=== PATIENT | male | born 1945 | race Two or more races ===

== ENCOUNTER 2020-11-24 08:20 | Emergency (ER) | payer OTHER ==
[~2020-11-24] VITALS: Ht 177.8 cm; Wt 83.9 kg
[2020-11-24] MEDS ORDERED: MONTELUKAST SODI4 M1 (08:40)
[2020-11-24] MEDS ORDERED: LIPITOR40 M1 (08:40)
[2020-11-24] MEDS ORDERED: ATIVAN1 M1 (08:40)
[2020-11-24] MEDS ORDERED: SERTRALINE20 MG/1 ML (08:41)
[2020-11-24] MEDS ORDERED: ELIQUIS2.5 MG (08:41)
[2020-11-24] MEDS ORDERED: LOSARTAN POTAS100 MG (08:42)
[2020-11-24] MEDS ORDERED: PROSCAR5 MG (08:43)
[2020-11-24] MEDS ORDERED: TAMS0.4C (08:43)
[2020-11-24] MEDS ORDERED: CILOSTAZOL50 MG (08:43)
[2020-11-24] MEDS ORDERED: CLINDAMYCIN HC300 MG PO (13:16)
[2020-11-24] MEDS ORDERED: INTESTINEX680 M1 PO (13:16)
== END 2020-11-24 13:35 | disposition home or self-care (01) ==
LOC: ER 08:20
DX: L02.212 Cutaneous abscess of back [any part, except buttock and flank] (principal); M54.5 Low back pain; M62.830 Muscle spasm of back; Z03.818 Encounter for observation for suspected exposure to other biological agents ruled out

== ENCOUNTER 2021-09-29 16:29 | Emergency (ER) | payer OTHER ==
[~2021-09-29] VITALS: Ht 177.8 cm; Wt 81.6 kg
[~2021-09-29 16:29] MED LIST: ATIVAN1 M1; CILOSTAZOL50 MG; CLINDAMYCIN HC300 MG PO; ELIQUIS2.5 MG; INTESTINEX680 M1 PO; LIPITOR40 M1; LOSARTAN POTAS100 MG; MONTELUKAST SODI4 M1; PROSCAR5 MG; SERTRALINE20 MG/1 ML; TAMS0.4C
== END 2021-09-29 19:25 | disposition home or self-care (01) ==
LOC: ER 16:29
DX: M79.644 Pain in right finger(s) (principal)

== ENCOUNTER 2021-11-19 13:11 | Emergency (ER) | payer OTHER ==
[~2021-11-19] VITALS: Ht 177.8 cm; Wt 83.0 kg
== END 2021-11-19 15:59 | disposition home or self-care (01) ==
LOC: ER 13:11
DX: S00.83XA Contusion of other part of head, initial encounter (principal); W18.39XA Other fall on same level, initial encounter; Y92.89 Other specified places as the place of occurrence of the external cause; I10 Essential (primary) hypertension

== ENCOUNTER → 2022-12-23 07:31 | Outpatient (CLI) | payer OTHER | END | disposition home or self-care (01) | LOC: LAB 07:31 | PROVIDERS: ATTEND Specialist | DX: D50.8 Other iron deficiency anemias (principal); R79.9 Abnormal finding of blood chemistry, unspecified; R74.02 Elevation of levels of lactic acid dehydrogenase [LDH]; K76.89 Other specified diseases of liver; D63.8 Anemia in other chronic diseases classified elsewhere; D55.0 Anemia due to glucose-6-phosphate dehydrogenase [G6PD] deficiency; D51.1 Vitamin B12 deficiency anemia due to selective vitamin B12 malabsorption with proteinuria; D51.0 Vitamin B12 deficiency anemia due to intrinsic factor deficiency; D63.1 Anemia in chronic kidney disease; E03.8 Other specified hypothyroidism; E06.3 Autoimmune thyroiditis; Z72.0 Tobacco use; Z71.6 Tobacco abuse counseling; F33.9 Major depressive disorder, recurrent, unspecified; N40.1 Benign prostatic hyperplasia with lower urinary tract symptoms; J44.9 Chronic obstructive pulmonary disease, unspecified; I11.9 Hypertensive heart disease without heart failure; G47.33 Obstructive sleep apnea (adult) (pediatric); R76.11 Nonspecific reaction to tuberculin skin test without active tuberculosis; I73.9 Peripheral vascular disease, unspecified; Z79.01 Long term (current) use of anticoagulants; R19.5 Other fecal abnormalities; Z13.220 Encounter for screening for lipoid disorders; E11.69 Type 2 diabetes mellitus with other specified complication; N39.9 Disorder of urinary system, unspecified; D64.89 Other specified anemias ==

== ENCOUNTER 2023-01-03 10:59 | Outpatient (CLI) | payer OTHER | END 2023-01-03 11:06 | disposition home or self-care (01) | LOC: LAB 10:59 | PROVIDERS: ATTEND Internal Medicine Hematology & Oncology | DX: D50.8 Other iron deficiency anemias (principal); R19.5 Other fecal abnormalities; Z72.0 Tobacco use; Z71.6 Tobacco abuse counseling; E78.2 Mixed hyperlipidemia; R73.01 Impaired fasting glucose; F33.9 Major depressive disorder, recurrent, unspecified; N40.1 Benign prostatic hyperplasia with lower urinary tract symptoms; J43.2 Centrilobular emphysema; I11.9 Hypertensive heart disease without heart failure; G47.33 Obstructive sleep apnea (adult) (pediatric); G65.0 Sequelae of Guillain-Barre syndrome; R91.1 Solitary pulmonary nodule; R76.11 Nonspecific reaction to tuberculin skin test without active tuberculosis; I73.9 Peripheral vascular disease, unspecified; Z79.01 Long term (current) use of anticoagulants ==

== ENCOUNTER 2023-02-16 09:07 | Outpatient (CLI) | payer OTHER | END 2023-02-16 09:08 | disposition home or self-care (01) | LOC: LAB 09:07 | PROVIDERS: ATTEND Internal Medicine Hematology & Oncology | DX: D50.8 Other iron deficiency anemias (principal); R19.5 Other fecal abnormalities; E11.69 Type 2 diabetes mellitus with other specified complication; E11.21 Type 2 diabetes mellitus with diabetic nephropathy; E03.8 Other specified hypothyroidism; Z12.5 Encounter for screening for malignant neoplasm of prostate; D64.89 Other specified anemias ==

== ENCOUNTER 2023-05-16 10:22 | Outpatient (CLI) | payer OTHER | END 2023-05-16 10:24 | disposition home or self-care (01) | LOC: LAB 10:22 | PROVIDERS: ATTEND Internal Medicine Hematology & Oncology | DX: D50.8 Other iron deficiency anemias (principal); R79.9 Abnormal finding of blood chemistry, unspecified; R74.02 Elevation of levels of lactic acid dehydrogenase [LDH]; K76.89 Other specified diseases of liver; D51.8 Other vitamin B12 deficiency anemias; D63.1 Anemia in chronic kidney disease; C25.9 Malignant neoplasm of pancreas, unspecified; R97.8 Other abnormal tumor markers; R97.0 Elevated carcinoembryonic antigen [CEA]; R77.2 Abnormality of alphafetoprotein; D51.3 Other dietary vitamin B12 deficiency anemia; N18.32 Chronic kidney disease, stage 3b; Z72.0 Tobacco use; Z71.6 Tobacco abuse counseling; E78.2 Mixed hyperlipidemia; R73.01 Impaired fasting glucose; F33.9 Major depressive disorder, recurrent, unspecified; N40.1 Benign prostatic hyperplasia with lower urinary tract symptoms; J44.9 Chronic obstructive pulmonary disease, unspecified; I11.9 Hypertensive heart disease without heart failure; G47.33 Obstructive sleep apnea (adult) (pediatric); G65.0 Sequelae of Guillain-Barre syndrome; R91.1 Solitary pulmonary nodule; R76.11 Nonspecific reaction to tuberculin skin test without active tuberculosis; I73.9 Peripheral vascular disease, unspecified; Z79.01 Long term (current) use of anticoagulants ==

== ENCOUNTER → 2023-06-08 | Outpatient (CLI) | payer OTHER | END | disposition home or self-care (01) | LOC: TOM 09:53 | DX: E78.2 Mixed hyperlipidemia (principal); N18.32 Chronic kidney disease, stage 3b ==

== ENCOUNTER 2023-07-05 09:24 | Outpatient (CLI) | payer OTHER ==
[2023-07-05 10:41] LABS: MEAN CELL VOLUME 93.4 fL (80.0-100.00); MEAN CORPUSCULAR HGB CONC 34.3 g/dl (32.0-36.0); PLATELET COUNT 200 K/uL (150-450); RED BLOOD COUNT 3.74 M/uL (4.00-6.00)
[2023-07-05 11:04] LABS: ALBUMIN 3.5 gm/dL (3.4-5.0); BILIRUBIN TOTAL 0.62 mg/dL (0.3-1.2); CALCIUM 9.6 mg/dL (8.5-10.1); CREATININE SERUM 1.89 mg/dL (0.70-1.30); GFR 34.49; POTASSIUM 3.7 mEq/L (3.5-5.1); PROSTATIC SPECIFIC ANTIGEN 0.315 NG/ML (0.010-4.00); TOTAL PROTEIN 7.5 gm/dL (6.4-8.2)
[2023-07-05 14:17] LABS: PLATELET ESTIMATE NORMAL (NORMAL)
== END 2023-07-05 09:25 | disposition home or self-care (01) ==
LOC: LAB 09:24
PROVIDERS: ATTEND Internal Medicine Hematology & Oncology
DX: D50.8 Other iron deficiency anemias (principal); R79.9 Abnormal finding of blood chemistry, unspecified; R74.02 Elevation of levels of lactic acid dehydrogenase [LDH]; K76.89 Other specified diseases of liver; D63.1 Anemia in chronic kidney disease; C25.9 Malignant neoplasm of pancreas, unspecified; R97.8 Other abnormal tumor markers; R97.0 Elevated carcinoembryonic antigen [CEA]; R97.20 Elevated prostate specific antigen [PSA]; R77.2 Abnormality of alphafetoprotein; D51.3 Other dietary vitamin B12 deficiency anemia; N18.32 Chronic kidney disease, stage 3b; Z72.0 Tobacco use; Z71.6 Tobacco abuse counseling; E78.2 Mixed hyperlipidemia; R73.01 Impaired fasting glucose; F33.9 Major depressive disorder, recurrent, unspecified; N40.1 Benign prostatic hyperplasia with lower urinary tract symptoms; J43.2 Centrilobular emphysema; J44.9 Chronic obstructive pulmonary disease, unspecified; I11.9 Hypertensive heart disease without heart failure; G47.33 Obstructive sleep apnea (adult) (pediatric); G65.0 Sequelae of Guillain-Barre syndrome; R91.1 Solitary pulmonary nodule; I73.9 Peripheral vascular disease, unspecified; Z79.01 Long term (current) use of anticoagulants; R76.11 Nonspecific reaction to tuberculin skin test without active tuberculosis

== ENCOUNTER → 2023-10-12 09:17 | Outpatient (CLI) | payer OTHER ==
[2023-10-12 10:39] LABS: PH,URINE 6.5 (5.0-8.0); URINE APPEARANCE Clear; URINE BILIRRUBIN Negative (NEGATIVE); URINE BLOOD Negative; URINE COLOR Yellow; URINE GLUCOSE Negative (NEGATIVE); URINE LEUKOCYTE Negative; URINE NITRATE Negative; URINE PROTEIN 30 (NEGATIVE); URINE UROBILINOGEN 0.2 E.U./dl
[2023-10-12 10:44] LABS: URINE EPITHELIAL CELLS 0.9 uL (0.0-38.8); URINE RBC 6.3 uL (0.0-20.8); URINE WBC 0.6 uL (0.0-23.2)
[2023-10-12 10:51] LABS: HEMATOCRIT 33.2 % (39.0-48.0); HEMOGLOBIN 11.5 g/dL (13-16.00); MEAN CELL VOLUME 92.6 fL (80.0-100.00); MEAN CORPUSCULAR HEMOGLOBIN 32.1 pg (27.00-32.0); MEAN CORPUSCULAR HGB CONC 34.6 g/dl (32.0-36.0); PLATELET COUNT 173 K/uL (150-450); RED BLOOD COUNT 3.59 M/uL (4.00-6.00)
[2023-10-12 11:24] LABS: ALBUMIN 3.6 gm/dL (3.4-5.0); BILIRUBIN TOTAL 0.5 mg/dL (0.3-1.2); CHOL HDL RATIO 3.7 (0-5.0); CREATININE SERUM 1.75 mg/dL (0.70-1.30); FREE TRIODOTIRONINE 2.07 pg/ml (2.18-3.98); GFR 37.69; GLOBULINA 3.9 G/DL (2.4-3.5); POTASSIUM 3.5 mEq/L (3.5-5.1); T4 FREE 0.83 NG/ML (0.76-1.46); TOTAL PROTEIN 7.5 gm/dL (6.4-8.2); TSH 1.24 uIU/mL (0.358-3.74)
[2023-10-12 11:26] LABS: C-REACTIVE PROTEIN 0.78 MG/DL (0.00-0.29)
[2023-10-12 14:36] LABS: MANUAL PLATELET COUNT 366
[2023-10-12 14:40] LABS: PLATELET ESTIMATE NORMAL (NORMAL)
[2023-10-12 15:26] LABS: FOLIC ACID > 20.00 ng/ml (4.78-20)
== END | disposition home or self-care (01) ==
LOC: LAB 09:17
PROVIDERS: ATTEND Specialist
DX: E03.8 Other specified hypothyroidism (principal); N39.9 Disorder of urinary system, unspecified; D64.89 Other specified anemias; M00.08 Staphylococcal arthritis, vertebrae; Z12.5 Encounter for screening for malignant neoplasm of prostate; Z13.220 Encounter for screening for lipoid disorders; D50.8 Other iron deficiency anemias; R79.9 Abnormal finding of blood chemistry, unspecified; R74.02 Elevation of levels of lactic acid dehydrogenase [LDH]; K76.89 Other specified diseases of liver; D51.8 Other vitamin B12 deficiency anemias; D63.1 Anemia in chronic kidney disease; C25.9 Malignant neoplasm of pancreas, unspecified; R97.8 Other abnormal tumor markers; R97.0 Elevated carcinoembryonic antigen [CEA]; R97.20 Elevated prostate specific antigen [PSA]; R77.2 Abnormality of alphafetoprotein; R73.01 Impaired fasting glucose; N40.1 Benign prostatic hyperplasia with lower urinary tract symptoms; J43.2 Centrilobular emphysema; J44.9 Chronic obstructive pulmonary disease, unspecified; I11.9 Hypertensive heart disease without heart failure; G47.33 Obstructive sleep apnea (adult) (pediatric); G65.0 Sequelae of Guillain-Barre syndrome; R91.1 Solitary pulmonary nodule; R76.11 Nonspecific reaction to tuberculin skin test without active tuberculosis; I73.9 Peripheral vascular disease, unspecified; N18.32 Chronic kidney disease, stage 3b; Z72.0 Tobacco use; E78.2 Mixed hyperlipidemia; D51.3 Other dietary vitamin B12 deficiency anemia

== ENCOUNTER 2024-01-10 12:04 | Outpatient (CLI) | payer OTHER ==
[2024-01-10 14:23] LABS: HEMATOCRIT 35.8 % (39.0-48.0); HEMOGLOBIN 12.4 g/dL (13-16.00); MEAN CELL VOLUME 95.2 fL (80.0-100.00); MEAN CORPUSCULAR HEMOGLOBIN 33.1 pg (27.00-32.0); MEAN CORPUSCULAR HGB CONC 34.8 g/dl (32.0-36.0); PLATELET COUNT 176 K/uL (150-450); RED BLOOD COUNT 3.76 M/uL (4.00-6.00); RED CELL DISTRIBUTION WIDTH 14.8 % (11.5-14.5)
[2024-01-10 14:41] LABS: PH,URINE 6.5 (5.0-8.0); URINE APPEARANCE Clear; URINE BILIRRUBIN Negative (NEGATIVE); URINE BLOOD Trace; URINE COLOR Yellow; URINE GLUCOSE Negative (NEGATIVE); URINE LEUKOCYTE Negative; URINE NITRATE Negative; URINE UROBILINOGEN 0.2 E.U./dl
[2024-01-10 14:44] LABS: URINE BACTERIA 33.9 uL (0.0-1933); URINE RBC 18.2 uL (0.0-20.8)
[2024-01-10 15:19] LABS: URINE EPITHELIAL CELLS 0.3 uL (0.0-38.8); URINE PROTEIN 100 (NEGATIVE)
[2024-01-10 15:32] LABS: ALBUMIN 3.8 gm/dL (3.4-5.0); BILIRUBIN TOTAL 0.64 mg/dL (0.3-1.2); CALCIUM 10.2 mg/dL (8.5-10.1); CHOL HDL RATIO 3.5 (0-5.0); CREATININE SERUM 1.94 mg/dL (0.70-1.30); GFR 33.46; GLOBULINA 4.1 G/DL (2.4-3.5); POTASSIUM 4.15 mEq/L (3.5-5.1); PROSTATIC SPECIFIC ANTIGEN 0.231 NG/ML (0.010-4.00); TOTAL PROTEIN 7.9 gm/dL (6.4-8.2); TSH 1.27 uIU/mL (0.358-3.74)
== END 2024-01-10 12:06 | disposition home or self-care (01) ==
LOC: LAB 12:04
PROVIDERS: ATTEND Specialist
DX: Z12.5 Encounter for screening for malignant neoplasm of prostate (principal); Z13.220 Encounter for screening for lipoid disorders; E11.65 Type 2 diabetes mellitus with hyperglycemia; N39.9 Disorder of urinary system, unspecified; N25.81 Secondary hyperparathyroidism of renal origin; D64.89 Other specified anemias; E11.69 Type 2 diabetes mellitus with other specified complication; E03.8 Other specified hypothyroidism; E11.21 Type 2 diabetes mellitus with diabetic nephropathy

== ENCOUNTER → 2024-01-11 | Outpatient (CLI) | payer OTHER | END | disposition home or self-care (01) | LOC: MRI 01-10 14:22 | DX: G30.1 Alzheimer's disease with late onset (principal); G31.84 Mild cognitive impairment of uncertain or unknown etiology | CPT/HCPCS: 70551 ==

== ENCOUNTER 2024-04-11 10:12 | Outpatient (CLI) | payer OTHER ==
[2024-04-11 10:53] LABS: URINE APPEARANCE Clear; URINE BILIRRUBIN Negative (NEGATIVE); URINE BLOOD Negative; URINE COLOR Yellow; URINE GLUCOSE Negative (NEGATIVE); URINE LEUKOCYTE Negative; URINE NITRATE Negative; URINE UROBILINOGEN 0.2 E.U./dl
[2024-04-11 10:56] LABS: HEMATOCRIT 34.1 % (39.0-48.0); HEMOGLOBIN 11.7 g/dL (13-16.00); MEAN CELL VOLUME 93.3 fL (80.0-100.00); MEAN CORPUSCULAR HEMOGLOBIN 32.1 pg (27.00-32.0); MEAN CORPUSCULAR HGB CONC 34.4 g/dl (32.0-36.0); PLATELET COUNT 179 K/uL (150-450); RED BLOOD COUNT 3.65 M/uL (4.00-6.00); RED CELL DISTRIBUTION WIDTH 14.6 % (11.5-14.5)
[2024-04-11 10:58] LABS: URINE BACTERIA 8.8 uL (0.0-1933); URINE EPITHELIAL CELLS 1.5 uL (0.0-38.8); URINE RBC 6.7 uL (0.0-20.8)
[2024-04-11 11:08] LABS: URINE PROTEIN 100 (NEGATIVE); URINE WBC 1.3 uL (0.0-23.2)
[2024-04-11 11:59] LABS: ALBUMIN 3.7 gm/dL (3.4-5.0); BILIRUBIN TOTAL 0.47 mg/dL (0.3-1.2); CALCIUM 9.9 mg/dL (8.5-10.1); CHOL HDL RATIO 3.3 (0-5.0); CREATININE SERUM 1.98 mg/dL (0.70-1.30); FREE TRIODOTIRONINE 2.04 pg/ml (2.18-3.98); GFR 32.6; GLOBULINA 3.9 G/DL (2.4-3.5); POTASSIUM 4.64 mEq/L (3.5-5.1); T4 FREE 0.84 NG/ML (0.76-1.46); TOTAL PROTEIN 7.6 gm/dL (6.4-8.2); TSH 1.12 uIU/mL (0.358-3.74)
[2024-04-11 12:02] LABS: C-REACTIVE PROTEIN 1.5 MG/DL (0.00-0.29)
== END 2024-04-11 10:20 | disposition home or self-care (01) ==
LOC: LAB 10:12
PROVIDERS: ATTEND Specialist
DX: E11.69 Type 2 diabetes mellitus with other specified complication (principal); E03.8 Other specified hypothyroidism; Z13.220 Encounter for screening for lipoid disorders; E11.21 Type 2 diabetes mellitus with diabetic nephropathy; N25.81 Secondary hyperparathyroidism of renal origin; D64.89 Other specified anemias; M00.80 Arthritis due to other bacteria, unspecified joint; N39.9 Disorder of urinary system, unspecified

== ENCOUNTER 2024-05-16 10:12 | Outpatient (CLI) | payer OTHER ==
[2024-05-16 11:03] LABS: HEMATOCRIT 31.9 % (39.0-48.0); HEMOGLOBIN 11.1 g/dL (13-16.00); MEAN CELL VOLUME 93.1 fL (80.0-100.00); MEAN CORPUSCULAR HEMOGLOBIN 32.3 pg (27.00-32.0); MEAN CORPUSCULAR HGB CONC 34.7 g/dl (32.0-36.0); PLATELET COUNT 165 K/uL (150-450); RED BLOOD COUNT 3.43 M/uL (4.00-6.00); RED CELL DISTRIBUTION WIDTH 15.2 % (11.5-14.5)
[2024-05-16 11:41] LABS: ALBUMIN 3.4 gm/dL (3.4-5.0); BILIRUBIN TOTAL 0.49 mg/dL (0.3-1.2); CALCIUM 9.7 mg/dL (8.5-10.1); CREATININE SERUM 1.82 mg/dL (0.70-1.30); GFR 35.93; GLOBULINA 3.7 G/DL (2.4-3.5); POTASSIUM 4.87 mEq/L (3.5-5.1); PROSTATIC SPECIFIC ANTIGEN 0.206 NG/ML (0.010-4.00); TOTAL PROTEIN 7.1 gm/dL (6.4-8.2)
[2024-05-16 11:55] LABS: MANUAL PLATELET COUNT 400
[2024-05-16 11:57] LABS: PLATELET ESTIMATE NORMAL (NORMAL)
[2024-05-16 12:19] LABS: FOLIC ACID > 20.00 ng/ml (4.78-20); VITAMIN D3 25 HYDROXY 37.18 ng/ml (30-120)
[2024-05-20 10:04] LABS: ALPHA FETO PROTEIN 2.2 ng/mL (0.0-6.4); ERYTHROPOIETIN 22.2 mIU/mL (2.6-18.5)
== END 2024-05-16 10:28 | disposition home or self-care (01) ==
LOC: LAB 10:12
PROVIDERS: ATTEND Internal Medicine Hematology & Oncology
DX: D50.8 Other iron deficiency anemias (principal); R97.0 Elevated carcinoembryonic antigen [CEA]; D51.3 Other dietary vitamin B12 deficiency anemia; D63.1 Anemia in chronic kidney disease; N18.32 Chronic kidney disease, stage 3b; Z72.0 Tobacco use; Z71.6 Tobacco abuse counseling; I10 Essential (primary) hypertension; E78.2 Mixed hyperlipidemia; R73.01 Impaired fasting glucose; F33.9 Major depressive disorder, recurrent, unspecified; N40.1 Benign prostatic hyperplasia with lower urinary tract symptoms; J44.9 Chronic obstructive pulmonary disease, unspecified; I11.9 Hypertensive heart disease without heart failure; G47.33 Obstructive sleep apnea (adult) (pediatric); G65.0 Sequelae of Guillain-Barre syndrome; R91.1 Solitary pulmonary nodule; R76.11 Nonspecific reaction to tuberculin skin test without active tuberculosis; I73.9 Peripheral vascular disease, unspecified; R79.9 Abnormal finding of blood chemistry, unspecified; R74.02 Elevation of levels of lactic acid dehydrogenase [LDH]; K76.89 Other specified diseases of liver; E55.9 Vitamin D deficiency, unspecified; C25.9 Malignant neoplasm of pancreas, unspecified

== ENCOUNTER 2024-07-18 11:09 | Outpatient (CLI) | payer OTHER | END 2024-07-18 11:19 | disposition home or self-care (01) | LOC: MRI 11:09 | PROVIDERS: ATTEND Internal Medicine Gastroenterology | DX: K86.2 Cyst of pancreas (principal); R74.01 Elevation of levels of liver transaminase levels | CPT/HCPCS: 74181 ==

== ENCOUNTER 2024-08-31 01:13 | Inpatient (IN) | payer OTHER ==
[~2024-08-31] VITALS: Ht 177.8 cm; Wt 79.4 kg
[2024-08-31] MEDS ORDERED: ALBUTEROL SULFATE 3 ML/2.5 MG AMPUL.NEB IH SCH (01:44)
[2024-08-31] MEDS ORDERED: 0.9 % SODIUM CHLORIDE 1,000 ML IV STA (01:48)
[2024-08-31] MEDS ORDERED: FUROsemide 20 MG/2 ML VIAL IV STA (01:49)
[2024-08-31] MEDS ORDERED: NITROGLYCERIN IN 5 % DEXTROSE 50 MG/250 ML BOTTLE IV STA (01:51)
[2024-08-31] MEDS ORDERED: MORPHINE SULFATE 2 MG/ML CARTRIDGE IV STA (01:52)
--- NOTE | 2024-08-31 02:26 | NUR ---
SE RECIBE PTE ALERTA Y ORIENTADO X 3 ESFERAS EN AMBULANCIA EN COMPANIA DE FAMILIAR.EL MISMO REFIERE FATIGA DESDE HACE VARIOS RENTERIA,SE OBSERVA USANDO MUSCULOS ACCESORIOS Y RETRACCION ABDOMINAL,EDEMA EN AMBOS PIES.PTE CON NON-REABREATHING MASK SATURANDO 91%.PARAMEDICOS ADMINISTRARON ALBUTEROL Y VASOTEC.CANALIZADO EN BRAZO LT CON .9NSS # 18 PATENTE Y LUIS F DE EDEMA.SE PRESENTA A DR HANKS Y SE UBICA EN AREA DE CPU.
--- NOTE | 2024-08-31 02:36 | NUR ---
PACIENTE EVALUADO POR DR HANKS. PAULO COLOCA ORDENES MEDICAS. SE ORIENTA PACIENTE DE LAS MISMAS. REFIERE ENTENDER. PACIENTE CON VENO PUNCION DE AMBULANCIA Y MR Fidel SWARTZ CANLIZA CON MEDIDAS ASEPTICAS EN MISMO BRAZO, AMBAS PATENTES Y LIBRES DE EDEMA Y/O ERITEMA. SE JUSTIN MUESTRAS Y SE ADMINISTRAN MEDICAMENTOS CON MEDIDAS ASEPTICAS. PACIENTE CONECTADO A MONITOR CARDIACO CON SATUROMETRO. SE INSERTA SONDA URINARIA CON MEDIDAS ESTERILES CORRESPONDIENTES, PACIENTE DRANADO 800 ML DE ORINA AMARILLA AMY AL MOMENTO. BARANDAS ELEVADAS POR HAWTHORNE SEGURIDAD CON CABECERA ELEVADA CHEKO ORDEN MEDICA. SE MONITOREA EN TURNO POR CAMBIOS SIGNIFICATIVOS.
[2024-08-31 02:53] LABS: ABG PH 7.331 (7.35-7.45); ABG PO2 82.5 mmHg (80-100); ABG pCO2 45.7 mmHg (35-45); BASE EXCESS -2.6 mmol/l; BICARBONATE 23.6 mmol/l (23-25); allen test SATISFACTORY; o2 100 %; puncture site RADIAL LEFT
[2024-08-31 03:06] LABS: URINE APPEARANCE Clear; URINE BILIRRUBIN Negative (NEGATIVE); URINE BLOOD NHT; URINE COLOR Yellow; URINE GLUCOSE Negative (NEGATIVE); URINE KETONE Negative (NEGATIVE); URINE LEUKOCYTE Negative; URINE NITRATE Negative; URINE UROBILINOGEN 0.2 E.U./dl
[2024-08-31 03:08] LABS: HEMATOCRIT 30.8 % (39.0-48.0); HEMOGLOBIN 10.5 g/dL (13-16.00); MEAN CELL VOLUME 95.5 fL (80.0-100.00); MEAN CORPUSCULAR HEMOGLOBIN 32.5 pg (27.00-32.0); PLATELET COUNT 154 K/uL (150-450); RED BLOOD COUNT 3.23 M/uL (4.00-6.00)
[2024-08-31 03:09] LABS: URINE EPITHELIAL CELLS 2.6 uL (0.0-38.8); URINE RBC 11.9 uL (0.0-20.8); URINE WBC 15.2 uL (0.0-23.2)
[2024-08-31 03:27] LABS: URINE PROTEIN 300 (NEGATIVE)
--- NOTE | 2024-08-31 03:52 | NUR ---
SE ORIENTA PACIENTE SOBRE MUESTRAS CANCELADAS Y NECESIDAD DE SER REPETIDAS. REFIERE ENTENDER. SE REALIZAN MUESTRAS CON MEDIDAS ASEPTICAS CORRESPONDIENTES.
[2024-08-31 04:51] LABS: ALBUMIN 2.9 gm/dL (3.4-5.0); BILIRUBIN TOTAL 0.64 mg/dL (0.3-1.2); CALCIUM 8.9 mg/dL (8.5-10.1); CREATININE SERUM 2.06 mg/dL (0.70-1.30); GFR 31.15; GLOBULINA 3.6 G/DL (2.4-3.5); POTASSIUM 4.64 mEq/L (3.5-5.1); TOTAL PROTEIN 6.5 gm/dL (6.4-8.2)
[2024-08-31 05:50] LABS: INR 1.09; PROTHROMBIN TIME 11.8 SECONDS (9.0-11.5)
[2024-08-31 06:04] LABS: PARTIAL THROMBOPLASTIN TIME 38.2 SECONDS (22.0-34.0)
--- NOTE | 2024-08-31 08:22 | NUR ---
SE RECIBE PACIENTE ALERTA Y ORIENTADO X3 CONECTADO A MONITOR CARDIACO Y OXIMETRIA DE PULSO CANALIZADO X2 CON ANGIO #20 Y #18 BAJANDO TRIDIL A 3 ML/HRS. SE MANTIENE BAJO OBSERVACION PARA CONTINUACION DE TRATAMIENTO.
[2024-08-31] MEDS ORDERED: SODIUM CHLORIDE 0.45 % 1,000 ML IV SCH (15:00)
[2024-08-31] MEDS ORDERED: CEFTRIAXONE SODIUM 1,000 MG in DEXTROSE 5 % IN WATER 100 ML IV SCH (15:10)
[2024-08-31] MEDS ORDERED: METOPROLOL SUCCINATE 25 MG TAB.SR.24H PO SCH (15:13)
[2024-08-31] MEDS ORDERED: LORazepam 0.5 MG TABLET PO PRN (15:15)
[2024-08-31 15:52] VITALS: O2SAT 92
[2024-08-31] MEDS ORDERED: NITROGLYCERIN IN 5 % DEXTROSE 250 ML IV SCH (15:58)
[2024-08-31 16:42] VITALS: BP 183/79
[2024-08-31] MEDS ORDERED: ATORVASTATIN CALCIUM 40 MG TABLET PO SCH (17:00)
[2024-08-31] MEDS ORDERED: IPRATROPIUM BROMIDE 0.5 MG/2.5 ML AMPUL.NEB IH SCH (17:00)
[2024-08-31] MEDS ORDERED: MONTELUKAST SODIUM 10 MG TABLET PO SCH (17:00)
[2024-08-31] MEDS ORDERED: FLUTICASONE PROPIONATE 50 MCG SPRAY NASAL SCH (17:00)
[2024-08-31] MEDS ORDERED: LOSARTAN POTASSIUM 100 MG TABLET PO SCH (17:00)
[2024-08-31] MEDS ORDERED: APIXABAN 2.5 MG TABLET PO SCH (17:00)
[2024-08-31 17:27] LABS: CKMB 2.1 NG/ML (0.5-3.6)
[2024-08-31] MEDS ORDERED: METHYLPREDNISOLONE SOD SUCC 40 MG VIAL IV SCH (19:12)
[2024-08-31] MEDS ORDERED: TAMSULOSIN HCL 0.4 MG CAP PO SCH (21:00)
[2024-08-31] MEDS ORDERED: IPRATROPIUM/ALBUTEROL SULFATE 3 ML AMPUL.NEB IH SCH (21:00)
[2024-08-31 21:31] VITALS: O2SAT 96
[2024-08-31 22:14] VITALS: BP 170/70
[2024-09-01] VITALS (8 sets, daily range): BP systolic 170–191; BP diastolic 80–110; O2SAT 93–98
[2024-09-01 07:25] LABS: HEMATOCRIT 30.6 % (39.0-48.0); HEMOGLOBIN 10.5 g/dL (13-16.00); MEAN CELL VOLUME 94.2 fL (80.0-100.00); MEAN CORPUSCULAR HEMOGLOBIN 32.4 pg (27.00-32.0); MEAN CORPUSCULAR HGB CONC 34.4 g/dl (32.0-36.0); PLATELET COUNT 154 K/uL (150-450); RED BLOOD COUNT 3.25 M/uL (4.00-6.00); RED CELL DISTRIBUTION WIDTH 14.6 % (11.5-14.5)
[2024-09-01 07:32] LABS: CKMB 1.3 NG/ML (0.5-3.6)
[2024-09-01 07:34] LABS: BILIRUBIN TOTAL 0.56 mg/dL (0.3-1.2); CALCIUM 8.9 mg/dL (8.5-10.1); CHOL HDL RATIO 3.3 (0-5.0); CREATININE SERUM 1.56 mg/dL (0.70-1.30); GFR 42.93; GLOBULINA 3.3 G/DL (2.4-3.5); POTASSIUM 3.75 mEq/L (3.5-5.1); PROSTATIC SPECIFIC ANTIGEN 0.215 NG/ML (0.010-4.00); T4 FREE 0.88 NG/ML (0.76-1.46); TOTAL PROTEIN 6.3 gm/dL (6.4-8.2); TSH 0.688 uIU/mL (0.358-3.74)
[2024-09-01 07:35] LABS: INR 1.07; PROTHROMBIN TIME 11.6 SECONDS (9.0-11.5)
[2024-09-01 07:44] LABS: URINE APPEARANCE Clear; URINE BILIRRUBIN Negative (NEGATIVE); URINE BLOOD Moderate; URINE COLOR Yellow; URINE GLUCOSE Negative (NEGATIVE); URINE KETONE Negative (NEGATIVE); URINE LEUKOCYTE Trace; URINE NITRATE Negative; URINE UROBILINOGEN 0.2 E.U./dl
[2024-09-01 07:45] LABS: C-REACTIVE PROTEIN 4.36 MG/DL (0.00-0.29)
[2024-09-01 07:47] LABS: ERYTHROCYTE SEDIMENTATION RATE 60 mm/hr; PARTIAL THROMBOPLASTIN TIME 40.7 SECONDS (22.0-34.0)
[2024-09-01 07:49] LABS: URINE BACTERIA 23.9 uL (0.0-1933); URINE RBC 264.6 uL (0.0-20.8); URINE WBC 24.7 uL (0.0-23.2)
[2024-09-01 08:17] LABS: URINE CAST 0.15 uL (0.0-1.40); URINE EPITHELIAL CELLS 0.9 uL (0.0-38.8); URINE PROTEIN 100 (NEGATIVE)
[2024-09-01] MEDS ORDERED: FUROsemide 20 MG/2 ML VIAL IV SCH (09:00)
[2024-09-01] MEDS ORDERED: hydrALAZINE HCL 50 MG TABLET PO SCH (13:51)
[2024-09-01] MEDS ORDERED: NIFEDIPINE 30 MG TAB.SA.OSM PO SCH (18:03)
[2024-09-02] VITALS (8 sets, daily range): BP systolic 126–139; BP diastolic 71–83; O2SAT 90–97
[2024-09-02 11:14] LABS: URINE PROT QUANT 24HR 210.5 MG/DL
[2024-09-02 11:28] LABS: URINE PROT QUANT 24 HR 4157.38 MG/24HR (42-225)
[2024-09-02 17:14] LABS: ABG PH 7.419 (7.35-7.45); ABG PO2 63.3 mmHg (80-100); ABG pCO2 39.2 mmHg (35-45); BASE EXCESS 0.4 mmol/l; BICARBONATE 24.8 mmol/l (23-25); SaO2 92.3 %
[2024-09-02 17:18] LABS: allen test SATISFACTORY; puncture site RADIAL RIGHT
[2024-09-02 17:19] LABS: o2 36 %
[2024-09-02] MEDS ORDERED: RISPERIDONE 0.5 MG TABLET PO SCH (21:00)
[2024-09-03] VITALS (9 sets, daily range): BP systolic 128–175; BP diastolic 67–91; O2SAT 90–99
[2024-09-03] MEDS ORDERED: SERTRALINE HCL 100 MG TABLET PO SCH (09:00)
[2024-09-03] MEDS ORDERED: CILOSTAZOL 50 MG TABLET PO SCH (09:00)
[2024-09-03] MEDS ORDERED: DONEPEZIL HCL 10 MG TABLET PO SCH (17:00)
[2024-09-03] MEDS ORDERED: NIFEDIPINE 30 MG TAB.SA.OSM PO SCH (17:00)
[2024-09-03 22:01] LABS: ALBUMIN 3.2 gm/dL (3.4-5.0); BILIRUBIN TOTAL 0.42 mg/dL (0.3-1.2); CALCIUM 9.5 mg/dL (8.5-10.1); CREATININE SERUM 2.15 mg/dL (0.70-1.30); GFR 29.65; GLOBULINA 3.6 G/DL (2.4-3.5); POTASSIUM 4.7 mEq/L (3.5-5.1); TOTAL PROTEIN 6.8 gm/dL (6.4-8.2)
[2024-09-04] VITALS (7 sets, daily range): BP systolic 145–161; BP diastolic 72–82; O2SAT 90–96
[2024-09-04 16:43] LABS: ALBUMIN 3.1 gm/dL (3.4-5.0); BILIRUBIN TOTAL 0.37 mg/dL (0.3-1.2); CALCIUM 9.5 mg/dL (8.5-10.1); CREATININE SERUM 2.14 mg/dL (0.70-1.30); GFR 29.81; GLOBULINA 3.8 G/DL (2.4-3.5); POTASSIUM 4.79 mEq/L (3.5-5.1); TOTAL PROTEIN 6.9 gm/dL (6.4-8.2)
[2024-09-04] MEDS ORDERED: ISOSORBIDE DINITRATE 5 MG TABLET PO SCH (18:19)
[2024-09-05 00:54] VITALS: O2SAT 96
[2024-09-05] MEDS ORDERED: METHYLPREDNISOLONE SOD SUCC 40 MG VIAL IV SCH (01:00)
[2024-09-05 01:10] VITALS: BP 154/77; O2SAT 99
[2024-09-05 03:48] VITALS: O2SAT 94
[2024-09-05 06:29] LABS: HEMATOCRIT 30.9 % (39.0-48.0); HEMOGLOBIN 10.9 g/dL (13-16.00); MEAN CELL VOLUME 93.3 fL (80.0-100.00); MEAN CORPUSCULAR HEMOGLOBIN 32.9 pg (27.00-32.0); MEAN CORPUSCULAR HGB CONC 35.3 g/dl (32.0-36.0); PLATELET COUNT 166 K/uL (150-450); RED BLOOD COUNT 3.31 M/uL (4.00-6.00); RED CELL DISTRIBUTION WIDTH 14.9 % (11.5-14.5)
[2024-09-05 07:16] LABS: ALBUMIN 2.9 gm/dL (3.4-5.0); BILIRUBIN TOTAL 0.34 mg/dL (0.3-1.2); CALCIUM 8.9 mg/dL (8.5-10.1); CREATININE SERUM 1.89 mg/dL (0.70-1.30); GFR 34.4; GLOBULINA 3.2 G/DL (2.4-3.5); POTASSIUM 3.46 mEq/L (3.5-5.1); TOTAL PROTEIN 6.1 gm/dL (6.4-8.2)
[2024-09-05 09:56] VITALS: BP 152/72; O2SAT 97
== END 2024-09-05 19:57 | disposition home or self-care (01) | DRG 292 ==
LOC: ER 01:13 → MEDI 15:22
PROVIDERS: Internal Medicine; ADMIT Specialist; ATTEND Specialist
PROC: BW24ZZZ Computerized Tomography (CT Scan) of Chest and Abdomen (ICD-10-PCS; principal; 2024-08-31)
PROC: BT4JZZZ Ultrasonography of Kidneys and Bladder (ICD-10-PCS; 2024-08-31)
PROC: B24BZZZ Ultrasonography of Heart with Aorta (ICD-10-PCS; 2024-08-31)
PROC: B54DZZZ Ultrasonography of Bilateral Lower Extremity Veins (ICD-10-PCS; 2024-08-31)
PROC: 4A12X4Z Monitoring of Cardiac Electrical Activity, External Approach (ICD-10-PCS; 2024-08-31)
DX: I13.0 Hypertensive heart and chronic kidney disease with heart failure and stage 1 through stage 4 chronic kidney disease, or unspecified chronic kidney disease (principal); G61.0 Guillain-Barre syndrome; J44.1 Chronic obstructive pulmonary disease with (acute) exacerbation; N17.9 Acute kidney failure, unspecified; N18.4 Chronic kidney disease, stage 4 (severe); I50.9 Heart failure, unspecified; I34.0 Nonrheumatic mitral (valve) insufficiency; J43.2 Centrilobular emphysema; I35.1 Nonrheumatic aortic (valve) insufficiency; I07.1 Rheumatic tricuspid insufficiency; J44.9 Chronic obstructive pulmonary disease, unspecified; E86.0 Dehydration; E78.5 Hyperlipidemia, unspecified; G47.33 Obstructive sleep apnea (adult) (pediatric); F03.90 Unspecified dementia, unspecified severity, without behavioral disturbance, psychotic disturbance, mood disturbance, and anxiety; I73.9 Peripheral vascular disease, unspecified

== ENCOUNTER 2024-09-09 10:04 | Outpatient (CLI) | payer OTHER ==
[2024-09-09 10:41] LABS: HEMATOCRIT 29.6 % (39.0-48.0); HEMOGLOBIN 10.1 g/dL (13-16.00); MEAN CELL VOLUME 95.6 fL (80.0-100.00); MEAN CORPUSCULAR HEMOGLOBIN 32.6 pg (27.00-32.0); RED BLOOD COUNT 3.09 M/uL (4.00-6.00); RED CELL DISTRIBUTION WIDTH 15.1 % (11.5-14.5)
[2024-09-09 10:50] LABS: PLATELET COUNT 149 K/uL (150-450)
[2024-09-09 11:01] LABS: CREATININE URINE RANDOM 94.7 MG/DL (30-125)
[2024-09-09 11:06] LABS: INR 1.05; PARTIAL THROMBOPLASTIN TIME 35.6 SECONDS (22.0-34.0); PROTHROMBIN TIME 11.4 SECONDS (9.0-11.5)
[2024-09-09 11:37] LABS: ALBUMIN 3.1 gm/dL (3.4-5.0); BILIRUBIN TOTAL 0.58 mg/dL (0.3-1.2); CHOL HDL RATIO 2.5 (0-5.0); CREATININE SERUM 1.9 mg/dL (0.70-1.30); FREE TRIODOTIRONINE 1.59 pg/ml (2.18-3.98); GFR 34.19; POTASSIUM 4.06 mEq/L (3.5-5.1); T4 FREE 0.79 NG/ML (0.76-1.46); TOTAL PROTEIN 6.1 gm/dL (6.4-8.2); TSH 0.841 uIU/mL (0.358-3.74)
[2024-09-10 09:05] LABS: PLATELET ESTIMATE NORMAL (NORMAL)
== END 2024-09-09 10:15 | disposition home or self-care (01) ==
LOC: LAB 10:04
PROVIDERS: ATTEND Specialist
DX: D64.9 Anemia, unspecified (principal); E11.65 Type 2 diabetes mellitus with hyperglycemia; I11.0 Hypertensive heart disease with heart failure; I50.9 Heart failure, unspecified; E03.9 Hypothyroidism, unspecified; E11.21 Type 2 diabetes mellitus with diabetic nephropathy; E78.2 Mixed hyperlipidemia; D68.8 Other specified coagulation defects

== ENCOUNTER 2024-09-13 06:48 | Emergency (ER) | payer OTHER ==
[~2024-09-13] VITALS: Ht 167.6 cm; Wt 86.2 kg
[2024-09-13] MEDS ORDERED: LOSARTAN POTAS100 MG PO (07:24)
[2024-09-13] MEDS ORDERED: BUDESONIDE 0.5 MG/2 ML AMPUL.NEB IH STA (08:17)
[2024-09-13] MEDS ORDERED: LEVALBUTEROL HCL 1.25 MG/3 ML SOLUTION IH STA (08:17)
[2024-09-13] MEDS ORDERED: METHYLPREDNISOLONE SOD SUCC 125 MG VIAL IV STA (08:18)
[2024-09-13] MEDS ORDERED: HYDROCODONE/CHLORPHEN P-STIREX 5 ML ML PO STA (08:19)
[2024-09-13] MEDS ORDERED: MAGNESIUM SULFATE IN WATER 50 ML IV ONE (08:30)
[2024-09-13 09:23] LABS: HEMATOCRIT 35.7 % (39.0-48.0); MEAN CELL VOLUME 95.4 fL (80.0-100.00); MEAN CORPUSCULAR HEMOGLOBIN 32.1 pg (27.00-32.0); MEAN CORPUSCULAR HGB CONC 33.6 g/dl (32.0-36.0); PLATELET COUNT 169 K/uL (150-450); RED BLOOD COUNT 3.74 M/uL (4.00-6.00); RED CELL DISTRIBUTION WIDTH 15.1 % (11.5-14.5)
[2024-09-13] MEDS ORDERED: CLONIDINE HCL 0.1 MG TABLET PO STA (10:01)
[2024-09-13 10:37] LABS: ALBUMIN 3.4 gm/dL (3.4-5.0); BILIRUBIN TOTAL 0.87 mg/dL (0.3-1.2); BILIRUBIN,CONJUGATED 0.22 mg/dL (0.0-0.2); BILIRUBIN,UNCONJUGATED 0.65 mg/dL (0.0-0.6); CALCIUM 9.4 mg/dL (8.5-10.1); CREATININE SERUM 1.87 mg/dL (0.70-1.30); GFR 34.83; POTASSIUM 4.33 mEq/L (3.5-5.1); TOTAL PROTEIN 6.8 gm/dL (6.4-8.2)
[2024-09-13 11:28] LABS: PH,URINE 6.5 (5.0-8.0); URINE APPEARANCE Clear; URINE BILIRRUBIN Negative (NEGATIVE); URINE BLOOD Small; URINE COLOR Dark Yellow; URINE GLUCOSE Negative (NEGATIVE); URINE KETONE Negative (NEGATIVE); URINE LEUKOCYTE Negative; URINE NITRATE Positive
[2024-09-13 11:32] LABS: URINE BACTERIA 12.2 uL (0.0-1933)
[2024-09-13 11:53] LABS: URINE CAST 0.44 uL (0.0-1.40); URINE PROTEIN 300 (NEGATIVE); URINE WBC 1.2 uL (0.0-23.2)
== END 2024-09-13 12:54 | disposition home or self-care (01) ==
LOC: ER 06:48
PROVIDERS: General Practice
DX: J44.1 Chronic obstructive pulmonary disease with (acute) exacerbation (principal); R06.02 Shortness of breath; I10 Essential (primary) hypertension
CPT/HCPCS: 36415; 71046; 93005; 94640; 96365; 96366; 99283; J2270; J3490

== ENCOUNTER 2024-09-16 05:46 | Inpatient (IN) | payer OTHER ==
[~2024-09-16] VITALS: Ht 165.1 cm; Wt 81.6 kg
[~2024-09-16 05:46] MED LIST changes: +LOSARTAN POTAS100 MG PO
[2024-09-16] MEDS ORDERED: 0.9 % SODIUM CHLORIDE 1,000 ML IV ONE (07:15)
[2024-09-16 08:24] LABS: HEMATOCRIT 30.6 % (39.0-48.0); HEMOGLOBIN 10.3 g/dL (13-16.00); MEAN CORPUSCULAR HEMOGLOBIN 31.9 pg (27.00-32.0); MEAN CORPUSCULAR HGB CONC 33.6 g/dl (32.0-36.0); PLATELET COUNT 165 K/uL (150-450); RED BLOOD COUNT 3.22 M/uL (4.00-6.00); RED CELL DISTRIBUTION WIDTH 15.3 % (11.5-14.5)
[2024-09-16 08:38] LABS: INR 1.05; PARTIAL THROMBOPLASTIN TIME 30.4 SECONDS (22.0-34.0); PROTHROMBIN TIME 11.4 SECONDS (9.0-11.5)
[2024-09-16 08:48] LABS: ALBUMIN 3.1 gm/dL (3.4-5.0); BILIRUBIN TOTAL 0.53 mg/dL (0.3-1.2); CALCIUM 9.6 mg/dL (8.5-10.1); CREATININE SERUM 1.9 mg/dL (0.70-1.30); GFR 34.19; GLOBULINA 3.4 G/DL (2.4-3.5); POTASSIUM 3.83 mEq/L (3.5-5.1); TOTAL PROTEIN 6.5 gm/dL (6.4-8.2)
[2024-09-16 12:08] LABS: URINE APPEARANCE Clear; URINE BILIRRUBIN Negative (NEGATIVE); URINE BLOOD Negative; URINE COLOR Yellow; URINE GLUCOSE Negative (NEGATIVE); URINE KETONE Negative (NEGATIVE); URINE LEUKOCYTE Negative; URINE NITRATE Negative; URINE UROBILINOGEN 0.2 E.U./dl
[2024-09-16 12:13] LABS: URINE BACTERIA 7.3 uL (0.0-1933); URINE RBC 6.9 uL (0.0-20.8)
[2024-09-16 12:18] LABS: URINE EPITHELIAL CELLS 0.9 uL (0.0-38.8); URINE PROTEIN 300 (NEGATIVE); URINE WBC 0.9 uL (0.0-23.2)
[2024-09-16] MEDS ORDERED: LEVALBUTEROL HCL 0.63 MG/3 ML SOLUTION IH SCH (13:14)
[2024-09-16] MEDS ORDERED: SODIUM CHLORIDE 0.45 % 1,000 ML IV SCH (13:15)
[2024-09-16] MEDS ORDERED: PANTOPRAZOLE SODIUM 40 MG/VIAL VIAL IV SCH (13:30)
[2024-09-16] MEDS ORDERED: PANTOPRAZOLE SODIUM 80 MG in 0.9 % SODIUM CHLORIDE 100 ML IV SCH (14:00)
[2024-09-16 15:48] VITALS: BP 178/76; BP 194/72; O2SAT 97
[2024-09-16] MEDS ORDERED: DONEPEZIL HCL 10 MG TABLET PO SCH (17:00)
[2024-09-16 17:55] VITALS: BP 172/81; O2SAT 97
[2024-09-16 20:17] LABS: ob POSITIVE (NEGATIVE)
[2024-09-17] VITALS (10 sets, daily range): BP systolic 117–156; BP diastolic 57–75; O2SAT 94–100
[2024-09-17 06:20] LABS: INR 1.1; PARTIAL THROMBOPLASTIN TIME 28.7 SECONDS (22.0-34.0); PROTHROMBIN TIME 11.9 SECONDS (9.0-11.5)
[2024-09-17 06:47] LABS: ALBUMIN 2.1 gm/dL (3.4-5.0); ALKALINE PHOSPHATASE 63 U/L (50-136); ALT/SGPT 15 U/L (12-78); ANION GAP 8 (10.0-20.0); AST/SGOT 16 U/L (15-37); BILIRUBIN TOTAL 0.41 mg/dL (0.3-1.2); BILIRUBIN,CONJUGATED < 0.10 mg/dL (0.0-0.2); BILIRUBIN,UNCONJUGATED 0.31 mg/dL (0.0-0.6); BLOOD UREA NITROGEN 38 mg/dL (7-18); BUN CREA RATIO 22 (7.0-25.0); CARBON DIOXIDE 27 mEq/L (21-32); CHLORIDE 113 mmol/L (98-107); CHOL HDL RATIO 3.1 (0-5.0); CHOLESTEROL 107 mg/dL (0-200); CREATININE SERUM 1.74 mg/dL (0.70-1.30); GFR 37.85; GLOBULINA 2.1 G/DL (2.4-3.5); GLUCOSE FASTING 91 mg/dL (65-100); HDL 34 mg/dl (40-60); LDL 45 mg/dl (0-130); OSMOLALITY SERUM 294 MOSM/KG (275-295); POTASSIUM 4.66 mEq/L (3.5-5.1); PROSTATIC SPECIFIC ANTIGEN 0.282 NG/ML (0.010-4.00); SODIUM 143 mmol/L (136-145); TOTAL PROTEIN 4.2 gm/dL (6.4-8.2); TRIGLYCERIDES 142 mg/dL (0-150); VLDL 28 (0-39)
[2024-09-17 06:57] LABS: URINE APPEARANCE Clear; URINE BILIRRUBIN Negative (NEGATIVE); URINE BLOOD Large; URINE COLOR Dark Yellow; URINE GLUCOSE Negative (NEGATIVE); URINE KETONE Trace (NEGATIVE); URINE LEUKOCYTE Trace; URINE NITRATE Negative; URINE UROBILINOGEN 0.2 E.U./dl
[2024-09-17 06:58] LABS: URINE BACTERIA 88.1 uL (0.0-1933); URINE CAST 1.62 uL (0.0-1.40); URINE EPITHELIAL CELLS 6.6 uL (0.0-38.8); URINE RBC 1694.6 uL (0.0-20.8); URINE WBC 21.5 uL (0.0-23.2)
[2024-09-17 07:17] LABS: URINE PROTEIN 300 (NEGATIVE)
[2024-09-17 07:57] LABS: MEAN CELL VOLUME 95.5 fL (80.0-100.00); MEAN CORPUSCULAR HGB CONC 33.9 g/dl (32.0-36.0); PLATELET COUNT 162 K/uL (150-450); RED BLOOD COUNT 2.04 M/uL (4.00-6.00); RED CELL DISTRIBUTION WIDTH 15.1 % (11.5-14.5)
[2024-09-17 07:58] LABS: HEMATOCRIT 19.5 % (39.0-48.0); HEMOGLOBIN 6.6 g/dL (13-16.00); MEAN CORPUSCULAR HEMOGLOBIN 32.3 pg (27.00-32.0)
[2024-09-17 08:00] LABS: ERYTHROCYTE SEDIMENTATION RATE 14 mm/hr
[2024-09-17] MEDS ORDERED: MONTELUKAST SODIUM 10 MG TABLET PO SCH (09:00)
[2024-09-17] MEDS ORDERED: TAMSULOSIN HCL 0.4 MG CAP PO SCH (09:00)
[2024-09-17] MEDS ORDERED: SERTRALINE HCL 100 MG TABLET PO SCH (09:00)
[2024-09-17] MEDS ORDERED: FUROsemide 20 MG/2 ML VIAL IV SCH (09:00)
[2024-09-17] MEDS ORDERED: FOLIC ACID 1 MG TABLET PO SCH (09:00)
[2024-09-18] VITALS (9 sets, daily range): BP systolic 129–152; BP diastolic 69–73; O2SAT 90–100
[2024-09-18] MEDS ORDERED: AMINO ACIDS 4.25 %/DEXTROSE 5% 1,000 ML PERIFERAL SCH (17:00)
[2024-09-19] VITALS (9 sets, daily range): BP systolic 152–175; BP diastolic 68–79; O2SAT 93–100
[2024-09-19 20:34] LABS: HEMATOCRIT 26.8 % (39.0-48.0); MEAN CELL VOLUME 88.1 fL (80.0-100.00); MEAN CORPUSCULAR HGB CONC 35.2 g/dl (32.0-36.0); RED BLOOD COUNT 3.05 M/uL (4.00-6.00)
[2024-09-19 20:41] LABS: MEAN CORPUSCULAR HEMOGLOBIN 30.8 pg (27.00-32.0)
[2024-09-19 20:46] LABS: HEMOGLOBIN 9.4 g/dL (13-16.00); PLATELET COUNT 126 K/uL (150-450)
[2024-09-19 21:49] LABS: CALCIUM 8.5 mg/dL (8.5-10.1); CHOL HDL RATIO 3.7 (0-5.0); CREATININE SERUM 1.83 mg/dL (0.70-1.30); GFR 35.71; MAGNESIUM 2.2 mg/dL (1.8-2.4); PHOSPHOROUS 2.3 mg/dL (2.5-4.9); POTASSIUM 3.16 mEq/L (3.5-5.1)
[2024-09-20] VITALS (9 sets, daily range): BP systolic 140–180; BP diastolic 63–80; O2SAT 90–100
[2024-09-20] MEDS ORDERED: POTASSIUM CHLORIDE IN WATER 100 ML IV STA (13:27)
[2024-09-20] MEDS ORDERED: LOSARTAN POTASSIUM 50 MG TABLET PO SCH (13:30)
[2024-09-20] MEDS ORDERED: hydrALAZINE HCL 20 MG VIAL IV PRN (13:30)
[2024-09-20] MEDS ORDERED: AMLODIPINE BESYLATE 10 MG TABLET PO SCH (13:30)
[2024-09-21] VITALS (9 sets, daily range): BP systolic 134–161; BP diastolic 63–81; O2SAT 90–100
[2024-09-21 08:18] LABS: CALCIUM 8.4 mg/dL (8.5-10.1); CREATININE SERUM 1.85 mg/dL (0.70-1.30); GFR 35.26; POTASSIUM 3.81 mEq/L (3.5-5.1)
[2024-09-21 09:28] LABS: HEMATOCRIT 23.8 % (39.0-48.0); HEMOGLOBIN 8.1 g/dL (13-16.00); MEAN CORPUSCULAR HEMOGLOBIN 30.6 pg (27.00-32.0); PLATELET COUNT 109 K/uL (150-450); RED BLOOD COUNT 2.64 M/uL (4.00-6.00); RED CELL DISTRIBUTION WIDTH 17.5 % (11.5-14.5)
[2024-09-21] MEDS ORDERED: FUROsemide 20 MG/2 ML VIAL IV SCH (13:30)
[2024-09-22] VITALS (8 sets, daily range): BP systolic 137–165; BP diastolic 64–86; O2SAT 90–100
[2024-09-22] MEDS ORDERED: FAMOtidine 20 MG TABLET PO SCH (12:20)
[2024-09-22] MEDS ORDERED: Cyanocobalamin/Mecobalamin 1 TAB.SL SL SCH (12:20)
[2024-09-22] MEDS ORDERED: SOD FERRIC GLUC COMPLX/SUCROSE 62.5 MG in 0.9 % SODIUM CHLORIDE 50 ML IV SCH (12:21)
[2024-09-23] VITALS (7 sets, daily range): BP systolic 141–155; BP diastolic 67–72; O2SAT 95–100
[2024-09-23 02:56] LABS: HEMATOCRIT 28.9 % (39.0-48.0); HEMOGLOBIN 10.2 g/dL (13-16.00); MEAN CELL VOLUME 88.6 fL (80.0-100.00); MEAN CORPUSCULAR HEMOGLOBIN 31.4 pg (27.00-32.0); MEAN CORPUSCULAR HGB CONC 35.4 g/dl (32.0-36.0); RED BLOOD COUNT 3.27 M/uL (4.00-6.00); RED CELL DISTRIBUTION WIDTH 16.8 % (11.5-14.5)
[2024-09-23 02:57] LABS: PLATELET COUNT 128 K/uL (150-450)
== END 2024-09-23 16:18 | disposition home or self-care (01) | DRG 292 ==
LOC: ER 05:46 → SEC-K 13:46 → MEDI 13:46
PROVIDERS: General Practice; ADMIT Specialist; ATTEND Specialist
PROC: BW21YZZ Computerized Tomography (CT Scan) of Abdomen and Pelvis using Other Contrast (ICD-10-PCS; principal; 2024-09-16)
PROC: CD2 Nuclear Medicine, Gastrointestinal System, Tomographic (Tomo) Nuclear Medicine Imaging (ICD-10-PCS; 2024-09-16)
PROC: 4A12X4Z Monitoring of Cardiac Electrical Activity, External Approach (ICD-10-PCS; 2024-09-17)
PROC: 30243N1 Transfusion of Nonautologous Red Blood Cells into Central Vein, Percutaneous Approach (ICD-10-PCS; 2024-09-17)
PROC: 02HV33Z Insertion of Infusion Device into Superior Vena Cava, Percutaneous Approach (ICD-10-PCS; 2024-09-18)
DX: I50.9 Heart failure, unspecified (principal); J44.1 Chronic obstructive pulmonary disease with (acute) exacerbation; N17.9 Acute kidney failure, unspecified; K62.5 Hemorrhage of anus and rectum; D64.9 Anemia, unspecified; I10 Essential (primary) hypertension; I48.91 Unspecified atrial fibrillation

== ENCOUNTER 2024-10-06 03:55 | Emergency (ER) | payer OTHER ==
[~2024-10-06] VITALS: Ht 177.8 cm; Wt 78.5 kg
[2024-10-06] MEDS ORDERED: ENALAPRILAT DIHYDRATE 2.5 MG/2 ML VIAL IV ONE (05:30)
[2024-10-06] MEDS ORDERED: cloNIDine HCL 0.2 MG TABLET PO ONE (05:30)
[2024-10-06] MEDS ORDERED: KETOROLAC TROMETHAMINE 30 MG VIAL IU ONE (05:30)
[2024-10-06] MEDS ORDERED: KETOROLAC TROMETHAMINE 60 MG VIAL IM ONE (05:49)
[2024-10-06] MEDS ORDERED: CLONIDINE HCL 0.1 MG TABLET PO ONE (05:49)
[2024-10-06] MEDS ORDERED: ENALAPRILAT DIHYDRATE 1.25 MG/ML VIAL IV ONE (05:50)
[2024-10-06 06:25] LABS: HEMATOCRIT 37.1 % (39.0-48.0); HEMOGLOBIN 12.8 g/dL (13-16.00); MEAN CELL VOLUME 91.1 fL (80.0-100.00); MEAN CORPUSCULAR HEMOGLOBIN 31.4 pg (27.00-32.0); MEAN CORPUSCULAR HGB CONC 34.5 g/dl (32.0-36.0); PLATELET COUNT 175 K/uL (150-450); RED BLOOD COUNT 4.08 M/uL (4.00-6.00); RED CELL DISTRIBUTION WIDTH 18.7 % (11.5-14.5)
[2024-10-06 06:48] LABS: ALBUMIN 3.4 gm/dL (3.4-5.0); BILIRUBIN TOTAL 0.6 mg/dL (0.3-1.2); CALCIUM 9.8 mg/dL (8.5-10.1); CREATININE SERUM 1.66 mg/dL (0.70-1.30); GFR 39.96; GLOBULINA 3.3 G/DL (2.4-3.5); POTASSIUM 3.78 mEq/L (3.5-5.1); TOTAL PROTEIN 6.7 gm/dL (6.4-8.2)
[2024-10-06 07:08] LABS: ABG PH 7.397 (7.35-7.45); ABG pCO2 42.5 mmHg (35-45); BASE EXCESS 0.6 mmol/l; BICARBONATE 25.6 mmol/l (23-25); Tco2 26.9 mmol/l; allen test SATISFACTORY; o2 21 %; puncture site RADIAL LEFT
== END 2024-10-06 14:40 | disposition home or self-care (01) ==
LOC: ER 03:55
PROVIDERS: General Practice
DX: M25.552 Pain in left hip (principal); R06.02 Shortness of breath; I50.9 Heart failure, unspecified
CPT/HCPCS: 36415; 71045; 72100; 73502; 82803; 93005; 93041; 96365; 96372; 99283; J1885 ×2; J3490 ×2

== ENCOUNTER 2024-10-11 07:43 | Inpatient (IN) | payer OTHER ==
[~2024-10-11] VITALS: Ht 177.8 cm; Wt 78.5 kg
[2024-10-11] MEDS ORDERED: SERTRALINE HCL100 MG PO (07:59)
[2024-10-11] MEDS ORDERED: FINASTERIDE5 MG PO (07:59)
[2024-10-11] MEDS ORDERED: MONTELUKAST SOD10 MG PO (07:59)
[2024-10-11] MEDS ORDERED: TRAMADOL HCL 50 MG TABLET PO ONE (08:30)
[2024-10-11 09:28] LABS: HEMATOCRIT 31.8 % (39.0-48.0); MEAN CELL VOLUME 90.8 fL (80.0-100.00); MEAN CORPUSCULAR HEMOGLOBIN 31.4 pg (27.00-32.0); MEAN CORPUSCULAR HGB CONC 34.6 g/dl (32.0-36.0); PLATELET COUNT 160 K/uL (150-450); RED BLOOD COUNT 3.51 M/uL (4.00-6.00); RED CELL DISTRIBUTION WIDTH 18.1 % (11.5-14.5)
[2024-10-11 09:33] LABS: INR 1.01; PARTIAL THROMBOPLASTIN TIME 33.3 SECONDS (22.0-34.0)
[2024-10-11 09:57] LABS: ALBUMIN 3.3 gm/dL (3.4-5.0); BILIRUBIN TOTAL 0.63 mg/dL (0.3-1.2); CALCIUM 9.9 mg/dL (8.5-10.1); CREATININE SERUM 2.13 mg/dL (0.70-1.30); GFR 29.97; GLOBULINA 3.1 G/DL (2.4-3.5); POTASSIUM 3.81 mEq/L (3.5-5.1); TOTAL PROTEIN 6.4 gm/dL (6.4-8.2)
[2024-10-11] MEDS ORDERED: 0.9 % SODIUM CHLORIDE 1,000 ML IV SCH ×2 (12:00→12:30)
[2024-10-11] MEDS ORDERED: FAMOTIDINE/PF 20 MG in 0.9 % SODIUM CHLORIDE 8 ML IV PUSH SCH (12:00)
[2024-10-11] MEDS ORDERED: PANTOPRAZOLE SODIUM 40 MG in 0.9 % SODIUM CHLORIDE 8 ML IV PUSH SCH (12:49)
[2024-10-11] MEDS ORDERED: FUROsemide 20 MG/2 ML VIAL IV SCH (12:50)
[2024-10-11] MEDS ORDERED: AMLODIPINE BESYLATE 10 MG TABLET PO SCH (12:52)
[2024-10-11] MEDS ORDERED: LOSARTAN POTASSIUM 50 MG TABLET PO SCH (12:52)
[2024-10-11] MEDS ORDERED: hydrALAZINE HCL 20 MG VIAL IV PRN (13:00)
[2024-10-11 14:19] LABS: ALBUMIN 3.4 gm/dL (3.4-5.0); BILIRUBIN TOTAL 0.73 mg/dL (0.3-1.2); CALCIUM 9.8 mg/dL (8.5-10.1); CREATININE SERUM 1.97 mg/dL (0.70-1.30); GFR 32.79; GLOBULINA 3.3 G/DL (2.4-3.5); POTASSIUM 4.16 mEq/L (3.5-5.1); TOTAL PROTEIN 6.7 gm/dL (6.4-8.2)
[2024-10-11 14:26] LABS: ALBUMIN 3.6 gm/dL (3.4-5.0); CALCIUM 9.9 mg/dL (8.5-10.1); CREATININE SERUM 2.01 mg/dL (0.70-1.30); GFR 32.04; PHOSPHOROUS 3.1 mg/dL (2.5-4.9); POTASSIUM 4.48 mEq/L (3.5-5.1)
[2024-10-11 14:41] LABS: PH,URINE 7.5 (5.0-8.0); URINE APPEARANCE Clear; URINE BILIRRUBIN Negative (NEGATIVE); URINE BLOOD Negative; URINE COLOR Yellow; URINE GLUCOSE Negative (NEGATIVE); URINE KETONE Negative (NEGATIVE); URINE LEUKOCYTE Negative; URINE NITRATE Negative; URINE UROBILINOGEN 0.2 E.U./dl
[2024-10-11 14:45] LABS: URINE BACTERIA 1302.2 uL (0.0-1933); URINE RBC 5.1 uL (0.0-20.8); URINE WBC 6.7 uL (0.0-23.2)
[2024-10-11 14:53] LABS: URINE PROTEIN 100 (NEGATIVE)
[2024-10-11 15:45] VITALS: BP 183/84; O2SAT 96
[2024-10-11 16:45] VITALS: BP 188/99; O2SAT 95
[2024-10-12 01:00] VITALS: BP 160/82; O2SAT 94
[2024-10-12 08:31] LABS: ALBUMIN 3.4 gm/dL (3.4-5.0); BILIRUBIN TOTAL 0.79 mg/dL (0.3-1.2); CREATININE SERUM 2.23 mg/dL (0.70-1.30); GFR 28.42; POTASSIUM 4.51 mEq/L (3.5-5.1); TOTAL PROTEIN 6.4 gm/dL (6.4-8.2)
[2024-10-12 08:32] VITALS: BP 184/101; O2SAT 96
[2024-10-12] MEDS ORDERED: hydrALAZINE HCL 50 MG TABLET PO SCH (10:28)
[2024-10-12] MEDS ORDERED: SODIUM CHLORIDE 0.45 % 1,000 ML IV SCH (10:30)
[2024-10-12 17:20] VITALS: BP 159/81
[2024-10-13 01:53] VITALS: BP 168/84; O2SAT 95
[2024-10-13 08:16] LABS: CALCIUM 9.2 mg/dL (8.5-10.1); CREATININE SERUM 2.17 mg/dL (0.70-1.30); GFR 29.33; POTASSIUM 4.08 mEq/L (3.5-5.1)
[2024-10-13 08:19] VITALS: BP 157/81; O2SAT 94
[2024-10-13] MEDS ORDERED: PANTOPRAZOLE SODIUM 40 MG/VIAL VIAL ONE (08:33)
[2024-10-13] MEDS ORDERED: CEFTRIAXONE SODIUM 2,000 MG in DEXTROSE 5 % IN WATER 100 ML IV SCH (09:00)
[2024-10-13 17:03] VITALS: BP 124/74
[2024-10-13] MEDS ORDERED: LORazepam 2 MG/ML VIAL IV ONE (17:30)
[2024-10-14 03:07] VITALS: BP 154/72; O2SAT 96
[2024-10-14 06:53] LABS: ALBUMIN 2.8 gm/dL (3.4-5.0); CALCIUM 8.9 mg/dL (8.5-10.1); CREATININE SERUM 2.16 mg/dL (0.70-1.30); GFR 29.49; PHOSPHOROUS 3.3 mg/dL (2.5-4.9); POTASSIUM 3.78 mEq/L (3.5-5.1); URIC ACID 7.4 mg/dL (3.5-8.5)
[2024-10-14 07:38] LABS: CREATININE URINE RANDOM 21.2 MG/DL (30-125)
[2024-10-14 08:22] VITALS: BP 145/65
[2024-10-14 16:17] VITALS: BP 149/81; O2SAT 100
[2024-10-14] MEDS ORDERED: LORazepam 2 MG/ML VIAL IV PRN (17:15)
[2024-10-15 03:12] VITALS: BP 149/83; O2SAT 94
[2024-10-15 09:07] VITALS: BP 149/81; O2SAT 98
== END 2024-10-15 12:58 | disposition home or self-care (01) | DRG 378 ==
LOC: ER 07:43 → SEC-K 13:43 → MEDI 14:35
PROVIDERS: General Practice; Internal Medicine Nephrology; ADMIT Internal Medicine; ATTEND Internal Medicine
PROC: BR20ZZZ Computerized Tomography (CT Scan) of Cervical Spine (ICD-10-PCS; principal; 2024-10-11)
PROC: BW28ZZZ Computerized Tomography (CT Scan) of Head (ICD-10-PCS; 2024-10-11)
PROC: BR29ZZZ Computerized Tomography (CT Scan) of Lumbar Spine (ICD-10-PCS; 2024-10-11)
PROC: BT4JZZZ Ultrasonography of Kidneys and Bladder (ICD-10-PCS; 2024-10-11)
PROC: BW4GZZZ Ultrasonography of Pelvic Region (ICD-10-PCS; 2024-10-14)
DX: K62.5 Hemorrhage of anus and rectum (principal); N17.9 Acute kidney failure, unspecified; N39.0 Urinary tract infection, site not specified; D64.9 Anemia, unspecified; R56.9 Unspecified convulsions; I10 Essential (primary) hypertension

== ENCOUNTER 2024-11-14 09:47 | Outpatient (CLI) | payer OTHER ==
[~2024-11-14 09:47] MED LIST changes: +FINASTERIDE5 MG PO; +MONTELUKAST SOD10 MG PO; +SERTRALINE HCL100 MG PO
[2024-11-14 10:53] LABS: PH,URINE 6.5 (5.0-8.0); URINE APPEARANCE Clear; URINE BILIRRUBIN Negative (NEGATIVE); URINE BLOOD Negative; URINE COLOR Yellow; URINE GLUCOSE Negative (NEGATIVE); URINE KETONE Negative (NEGATIVE); URINE LEUKOCYTE Negative; URINE NITRATE Negative; URINE UROBILINOGEN 0.2 E.U./dl
[2024-11-14 11:07] LABS: INR 0.99; PARTIAL THROMBOPLASTIN TIME 36.5 SECONDS (22.0-34.0); PROTHROMBIN TIME 10.8 SECONDS (9.0-11.5)
[2024-11-14 11:11] LABS: URINE BACTERIA 2.4 uL (0.0-1933); URINE CAST 0.14 uL (0.0-1.40); URINE PROTEIN 100 (NEGATIVE); URINE RBC 1.3 uL (0.0-20.8); URINE WBC 0.9 uL (0.0-23.2)
[2024-11-14 11:17] LABS: CREATININE URINE RANDOM 40.3 MG/DL (30-125)
[2024-11-14 11:28] LABS: ERYTHROCYTE SEDIMENTATION RATE 38 mm/hr
[2024-11-14 11:37] LABS: HEMATOCRIT 28.2 % (39.0-48.0); MEAN CELL VOLUME 92.1 fL (80.0-100.00); MEAN CORPUSCULAR HGB CONC 34.4 g/dl (32.0-36.0); RED BLOOD COUNT 3.06 M/uL (4.00-6.00); RED CELL DISTRIBUTION WIDTH 16.5 % (11.5-14.5)
[2024-11-14 11:38] LABS: HEMOGLOBIN 9.7 g/dL (13-16.00); MEAN CORPUSCULAR HEMOGLOBIN 31.6 pg (27.00-32.0); PLATELET COUNT 149 K/uL (150-450)
[2024-11-14 11:43] LABS: MANUAL PLATELET COUNT 160
[2024-11-14 11:53] LABS: ALBUMIN 3.6 gm/dL (3.4-5.0); BILIRUBIN TOTAL 0.54 mg/dL (0.3-1.2); CALCIUM 9.9 mg/dL (8.5-10.1); CHOL HDL RATIO 2.3 (0-5.0); CREATININE SERUM 2.36 mg/dL (0.70-1.30); FREE TRIODOTIRONINE 2.1 pg/ml (2.18-3.98); GFR 26.62; GLOBULINA 3.2 G/DL (2.4-3.5); POTASSIUM 3.56 mEq/L (3.5-5.1); PROSTATIC SPECIFIC ANTIGEN 0.266 NG/ML (0.010-4.00); T4 FREE 0.81 NG/ML (0.76-1.46); TOTAL PROTEIN 6.8 gm/dL (6.4-8.2)
[2024-11-14 12:21] LABS: FOLIC ACID > 20.00 ng/ml (4.78-20)
[2024-11-15 06:53] LABS: PLATELET ESTIMATE NORMAL (NORMAL)
[2024-11-15 10:08] LABS: ALPHA FETO PROTEIN 3.2 ng/mL (0.0-6.4)
== END 2024-11-14 09:48 | disposition home or self-care (01) ==
LOC: LAB 09:47
PROVIDERS: ATTEND Internal Medicine Hematology & Oncology
DX: D50.8 Other iron deficiency anemias (principal); D51.3 Other dietary vitamin B12 deficiency anemia; R97.0 Elevated carcinoembryonic antigen [CEA]; D63.1 Anemia in chronic kidney disease; N18.32 Chronic kidney disease, stage 3b; Z72.0 Tobacco use; Z71.6 Tobacco abuse counseling; I10 Essential (primary) hypertension; E78.2 Mixed hyperlipidemia; R73.01 Impaired fasting glucose; F33.9 Major depressive disorder, recurrent, unspecified; N40.1 Benign prostatic hyperplasia with lower urinary tract symptoms; J43.2 Centrilobular emphysema; J44.9 Chronic obstructive pulmonary disease, unspecified; I11.9 Hypertensive heart disease without heart failure; G47.33 Obstructive sleep apnea (adult) (pediatric); G65.0 Sequelae of Guillain-Barre syndrome; R91.1 Solitary pulmonary nodule; R76.11 Nonspecific reaction to tuberculin skin test without active tuberculosis; I73.9 Peripheral vascular disease, unspecified; Z79.01 Long term (current) use of anticoagulants; N39.9 Disorder of urinary system, unspecified; D64.9 Anemia, unspecified; N25.81 Secondary hyperparathyroidism of renal origin

== ENCOUNTER 2025-02-12 08:06 | Outpatient (CLI) | payer OTHER | END 2025-02-12 08:12 | disposition home or self-care (01) | LOC: TOM 08:06 | PROVIDERS: ATTEND Internal Medicine Pulmonary Disease | DX: R91.1 Solitary pulmonary nodule (principal); J43.2 Centrilobular emphysema ==

== ENCOUNTER 2025-02-12 09:24 | Outpatient (CLI) | payer OTHER ==
[2025-02-12 11:03] LABS: URINE APPEARANCE Clear; URINE BILIRRUBIN Negative (NEGATIVE); URINE BLOOD Negative; URINE COLOR Yellow; URINE GLUCOSE Negative (NEGATIVE); URINE KETONE Negative (NEGATIVE); URINE LEUKOCYTE Negative; URINE NITRATE Negative; URINE PROTEIN 30 (NEGATIVE); URINE UROBILINOGEN 0.2 E.U./dl
[2025-02-12 11:06] LABS: URINE BACTERIA 4.8 uL (0.0-1933)
[2025-02-12 11:09] LABS: BASO % 0.8 % (0.1-1.2); HEMATOCRIT 27.7 % (40.1-51.0); HEMOGLOBIN 9.4 g/dL (13.7-17.5); LYMPH # 0.85 (1.18-3.74); LYMPH % 23.7 % (19.3-53.1); MEAN CORPUSCULAR HEMOGLOBIN 32.5 pg (25.6-32.2); MONO # 0.37 (0.24-0.82); MONO % 10.3 % (4.7-12.5); NEUT # 2.33 (1.56-6.13); NEUT % 64.9 % (34.0-71.1); PLATELET COUNT 155 K/uL (163-369); RED BLOOD COUNT 2.89 M/uL (4.63-6.08); RED CELL DISTRIBUTION WIDTH 14.6 % (11.6-14.4)
[2025-02-12 11:11] LABS: URINE RBC 1.9 uL (0.0-20.8); URINE WBC 0.3 uL (0.0-23.2)
[2025-02-12 12:06] LABS: % SATURACION 22.9 % (20-50); ALBUMIN 3.5 gm/dL (3.4-5.0); BILIRUBIN TOTAL 0.54 mg/dL (0.3-1.2); CALCIUM 9.6 mg/dL (8.5-10.1); CREATININE SERUM 2.32 mg/dL (0.70-1.30); FERRITIN 144.4 NG/ML (26-388); GFR 27.15; GLOBULINA 3.5 G/DL (2.4-3.5); POTASSIUM 4.42 mEq/L (3.5-5.1)
[2025-02-12 16:03] LABS: FOLIC ACID > 20.00 ng/ml (4.78-20)
== END 2025-02-12 09:25 | disposition home or self-care (01) ==
LOC: LAB 09:24
PROVIDERS: ATTEND Internal Medicine Hematology & Oncology
DX: D50.8 Other iron deficiency anemias (principal); D51.3 Other dietary vitamin B12 deficiency anemia; R97.0 Elevated carcinoembryonic antigen [CEA]; D63.1 Anemia in chronic kidney disease; N18.32 Chronic kidney disease, stage 3b; Z72.0 Tobacco use; Z71.6 Tobacco abuse counseling; I10 Essential (primary) hypertension; E78.2 Mixed hyperlipidemia; R73.01 Impaired fasting glucose; F33.9 Major depressive disorder, recurrent, unspecified; N40.1 Benign prostatic hyperplasia with lower urinary tract symptoms; J43.2 Centrilobular emphysema; J44.9 Chronic obstructive pulmonary disease, unspecified; I11.9 Hypertensive heart disease without heart failure; G47.33 Obstructive sleep apnea (adult) (pediatric); G65.0 Sequelae of Guillain-Barre syndrome; R91.1 Solitary pulmonary nodule; R76.11 Nonspecific reaction to tuberculin skin test without active tuberculosis; I73.9 Peripheral vascular disease, unspecified; Z79.01 Long term (current) use of anticoagulants; R79.9 Abnormal finding of blood chemistry, unspecified; R74.02 Elevation of levels of lactic acid dehydrogenase [LDH]; K76.89 Other specified diseases of liver

== ENCOUNTER 2025-04-15 11:41 | Outpatient (CLI) | payer OTHER ==
[2025-04-15 12:28] LABS: URINE APPEARANCE Clear; URINE BILIRRUBIN Negative (NEGATIVE); URINE BLOOD Negative; URINE COLOR Yellow; URINE GLUCOSE Negative (NEGATIVE); URINE KETONE Negative (NEGATIVE); URINE LEUKOCYTE Negative; URINE NITRATE Negative; URINE UROBILINOGEN 0.2 E.U./dl
[2025-04-15 12:28] LABS: BASO % 0.8 % (0.1-1.2); EOS # 0.00 (0.04-0.54); EOS % 0.0 % (0.7-7.0); LYMPH # 0.94 (1.18-3.74); LYMPH % 24.0 % (19.3-53.1); MEAN PLATELET VOLUME 9.40 fl (9.4-12.4); MONO # 0.34 (0.24-0.82); MONO % 8.7 % (4.7-12.5); NEUT # 2.59 (1.56-6.13); NEUT % 66.2 % (34.0-71.1); RED CELL DISTRIBUTION WIDTH 14.0 % (11.6-14.4)
[2025-04-15 12:35] LABS: CREATININE URINE RANDOM 74.7 MG/DL (30-125); URINE BACTERIA 9.5 uL (0.0-1933); URINE EPITHELIAL CELLS 1.6 uL (0.0-38.8); URINE RBC 3.3 uL (0.0-20.8)
[2025-04-15 12:53] LABS: URINE CAST 0.00 uL (0.0-1.40); URINE PROTEIN 100 (NEGATIVE); URINE WBC 0.1 uL (0.0-23.2)
[2025-04-15 13:36] LABS: CHOL HDL RATIO 3.1 (0-5.0); FREE TRIODOTIRONINE 1.97 pg/ml (2.18-3.98); HDL 59.0 mg/dl (40-60); LDL 103.0 mg/dl (0-130); PROSTATIC SPECIFIC ANTIGEN 0.135 NG/ML (0.010-4.00); T4 FREE 0.77 NG/ML (0.76-1.46); TSH 1.34 uIU/mL (0.358-3.74); VLDL 20.0 (0-39)
== END 2025-04-15 11:51 | disposition home or self-care (01) ==
LOC: LAB 11:41
PROVIDERS: ATTEND Specialist
DX: E03.9 Hypothyroidism, unspecified (principal); E11.21 Type 2 diabetes mellitus with diabetic nephropathy; N39.9 Disorder of urinary system, unspecified; D40.0 Neoplasm of uncertain behavior of prostate; E78.2 Mixed hyperlipidemia; E11.65 Type 2 diabetes mellitus with hyperglycemia; D64.9 Anemia, unspecified

== ENCOUNTER 2025-04-17 11:06 | Outpatient (CLI) | payer OTHER ==
[2025-04-17 13:01] LABS: CREATININE URINE 50.2 MG/DL; URINE PROT QUANT 24HR 61.2 MG/DL
[2025-04-17 13:02] LABS: URINE PROT QUANT 24 HR 1346.4 MG/24HR (42-225)
[2025-04-17 13:13] LABS: CREATINE CLEARANCE 38.8 ML/MIN (97-137); CREATININE SERUM 1.98 mg/dL (0.8-1.3)
== END 2025-04-17 11:11 | disposition home or self-care (01) ==
LOC: LAB 11:06
PROVIDERS: ATTEND Specialist
DX: E03.9 Hypothyroidism, unspecified (principal); E11.21 Type 2 diabetes mellitus with diabetic nephropathy; N39.9 Disorder of urinary system, unspecified; D40.0 Neoplasm of uncertain behavior of prostate; E78.2 Mixed hyperlipidemia; E11.65 Type 2 diabetes mellitus with hyperglycemia; D64.9 Anemia, unspecified

== ENCOUNTER → 2025-08-13 | Outpatient (CLI) | payer OTHER | END | disposition home or self-care (01) | LOC: RAD 16:25 | PROVIDERS: ATTEND Internal Medicine | DX: I11.0 Hypertensive heart disease with heart failure (principal); I48.0 Paroxysmal atrial fibrillation ==

== ENCOUNTER 2025-08-15 11:35 | Outpatient (CLI) | payer OTHER ==
[2025-08-15 12:25] LABS: BASO % 0.2 % (0.1-1.2); EOS # 0.00 (0.04-0.54); EOS % 0.0 % (0.7-7.0); LYMPH # 1.12 (1.18-3.74); LYMPH % 26.5 % (19.3-53.1); MEAN PLATELET VOLUME 9.30 fl (9.4-12.4); MONO # 0.30 (0.24-0.82); MONO % 7.1 % (4.7-12.5); NEUT # 2.79 (1.56-6.13); NEUT % 66.0 % (34.0-71.1); RED CELL DISTRIBUTION WIDTH 13.7 % (11.6-14.4)
[2025-08-15 12:26] LABS: URINE APPEARANCE Clear; URINE BILIRRUBIN Negative (NEGATIVE); URINE BLOOD Negative; URINE COLOR Yellow; URINE GLUCOSE Negative (NEGATIVE); URINE KETONE Negative (NEGATIVE); URINE LEUKOCYTE Negative; URINE NITRATE Negative; URINE UROBILINOGEN 0.2 E.U./dl
[2025-08-15 12:27] LABS: URINE BACTERIA 9.5 uL (0.0-1933); URINE RBC 3.6 uL (0.0-20.8)
[2025-08-15 12:32] LABS: URINE CAST 0.00 uL (0.0-1.40); URINE EPITHELIAL CELLS 1.3 uL (0.0-38.8); URINE PROTEIN 300 (NEGATIVE); URINE WBC 0.1 uL (0.0-23.2)
[2025-08-15 12:50] LABS: CREATININE URINE RANDOM 95.4 MG/DL (30-125)
[2025-08-15 13:42] LABS: ALT/SGPT 26.0 U/L (12-78); AST/SGOT 25.0 U/L (15-37); BILIRUBIN TOTAL 0.41 mg/dL (0.3-1.2); BILIRUBIN,CONJUGATED 0.15 mg/dL (0.0-0.2); BUN CREA RATIO 14.0 (7.0-25.0); CHOL HDL RATIO 3.6 (0-5.0); CREATININE SERUM 1.84 mg/dL (0.70-1.30); FREE TRIODOTIRONINE 1.95 pg/ml (2.18-3.98); GFR 35.39; GLOBULINA 3.8 G/DL (2.4-3.5); GLUCOSE FASTING 101.0 mg/dL (65-100); HDL 48.0 mg/dl (40-60); LDL 95.0 mg/dl (0-130); OSMOLALITY SERUM 290.0 MOSM/KG (275-295); PROSTATIC SPECIFIC ANTIGEN 0.183 NG/ML (0.010-4.00); T4 FREE 0.91 NG/ML (0.76-1.46); TSH 1.1 uIU/mL (0.358-3.74); VLDL 28.0 (0-39)
== END 2025-08-15 11:36 | disposition home or self-care (01) ==
LOC: LAB 11:35
PROVIDERS: ATTEND Specialist
DX: E03.9 Hypothyroidism, unspecified (principal); E11.21 Type 2 diabetes mellitus with diabetic nephropathy; N39.9 Disorder of urinary system, unspecified; E11.65 Type 2 diabetes mellitus with hyperglycemia; D64.9 Anemia, unspecified; K75.81 Nonalcoholic steatohepatitis (NASH); E55.9 Vitamin D deficiency, unspecified